=== PATIENT | female | born 1965 | race Caucasian/White ===

== ENCOUNTER 2016-09-11 07:50 | Emergency (ER) | payer OTHER ==
[~2016-09-11] VITALS: Ht 170.1 cm; Wt 81.6 kg
[~2016-09-11 07:50] MED LIST: AMOXICILLIN500 MG PO; ANAPROX DS550 MG PO; BACTRIM DS 8001 TA1 PO; CIPROFLOXACIN500 MG PO; CLINDAMYCIN HC300 MG PO; COMPAZINE10 MG PO; Fioricet 325 MG1 TAB PO; HYDROCODONE BIT1 T11 PO; IBU800 M1 PO; KEFLEX500 MG PO; MOTRIN800 MG PO; NAPROSYN500 MG PO; NKHM; NORCO 325 MG-51 TAB PO; PEN-V500 MG PO; PERCOCET 325 MG1 TA7 PO; PERIDEX 480 ML480 ML PO; TOBRADEX 0.1%-0.5 ML OPH; ULTRAM50 MG PO
[2016-09-11] MEDS ORDERED: NEURONTIN100 MG PO (07:56)
[2016-09-11 08:27] LABS: BASO % 0.4 % (0.0-1.0); EOS # 0.1 10*3/uL (0.0-0.4); EOS % 1.6 % (1.0-4.0); HEMATOCRIT 42.3 % (37.0-47.0); HEMOGLOBIN 14.5 g/dl (12.0-16.0); LYMPH # 2.4 10*3/uL (1.3-4.4); LYMPH % 42.8 % (27.0-41.0); MEAN CELL VOLUME 87.9 fl (81.0-99.0); MEAN CORPUSCULAR HGB 30.1 pg (27.0-31.0); MEAN CORPUSCULAR HGB CONC 34.3 g/dl (33.0-37.0); MEAN PLATELET VOLUME 10.4 fl (9.6-12.3); MONO # 0.3 10*3/uL (0.1-1.0); MONO % 5.6 % (3.0-9.0); NEUT # 2.7 10*3/uL (2.3-7.9); NEUT % 49.4 % (47.0-73.0); PLATELET COUNT AUTOMATED 191 10*3/uL (130-400); RED BLOOD COUNT 4.81 10*6/uL (4.10-5.10); RED CELL DISTRI WIDTH 12.4 % (0-14.5); WHITE BLOOD COUNT 5.5 10*3/uL (4.8-10.8)
[2016-09-11 08:49] LABS: BUN 10 mg/dl (7-24); CARBON DIOXIDE 25 mmol/L (21-32); CHLORIDE 109 mmol/L (98-107); EST GLOM FILT AFRICAN AMERICAN > 60 ml/min; GLUCOSE 94 mg/dL (65-99); POTASSIUM 4.1 mmol/L (3.5-5.1); SODIUM 143 mmol/L (136-145)
[2016-09-11 08:50] LABS: TROPONIN I < 0.015 ng/ml (<0.5)
[2016-09-11] MEDS ORDERED: Fioricet 325 MG1 TAB PO (10:21)
[2016-09-11] MEDS ORDERED: ZOFRAN ODT4 MG SL (10:21)
[2016-09-11 10:22] VITALS: BP 125/74
== END 2016-09-11 10:25 | disposition home or self-care (01) ==
LOC: ED 07:50
PROVIDERS: Emergency Medicine
DX: G43.909 Migraine, unspecified, not intractable, without status migrainosus (principal); R07.89 Other chest pain; F17.200 Nicotine dependence, unspecified, uncomplicated; Z79.899 Other long term (current) drug therapy

== ENCOUNTER 2016-12-17 08:45 | Inpatient (IN) | payer OTHER ==
[~2016-12-17] VITALS: Ht 170.1 cm; Wt 83.2 kg
--- NOTE | ~2016-12-17 | CON ---
[place], [place] REPORT OF CONSULTATION NAME: BEATRICE MCKEE UNIT #: [id number] ROOM: 412 DOCTOR: LUIS BOX MD BIRTHDATE: [birth year] DOS: 12/18/2016 HISTORY OF PRESENT ILLNESS: A 51-year-old female consultation for chest pain with a history of fibromyalgia, admitted with midsternal, nonradiating chest discomfort. The patient states that tightness and pressure is constant. The patient has no acute EKG changes suggestion of myocardial injury or infarction. She never had a stress test before. In the Emergency Room, she was given aspirin and nitrates. PAST MEDICAL HISTORY: Significant for fibromyalgia, migraine headache, neuropathy, dental pain. PAST SURGICAL HISTORY: Appendectomy, hysterectomy. SOCIAL HISTORY: She is a current tobacco user, 1-2 packs per day. Denies any alcohol abuse. FAMILY HISTORY: Positive for coronary artery disease. HOME MEDICATIONS: Gabapentin, ibuprofen, acetaminophen. REVIEW OF SYSTEMS: CONSTITUTIONAL: No fever, no chills. HEENT: No visual disturbances or hearing problems. CARDIOVASCULAR SYSTEM: As described in HPI. RESPIRATORY SYSTEM: No shortness of breath. ABDOMEN: No GI or issues. NEUROLOGICAL: No syncope. All other review of systems are negative. PHYSICAL EXAMINATION: VITAL SIGNS: Blood pressure is 110/70. She is in sinus rhythm. HEENT: Unremarkable. NECK: Supple, no JVD. LUNGS: Clear to auscultation and percussion. HEART: Heart sounds are regular. No murmur, no rub. ABDOMEN: Soft. NEUROLOGIC: Stable. LABORATORY DATA: Cardiac enzymes are all negative. Electrolytes are normal. Troponins are negative. Hemoglobin and hematocrit within normal limits. EKG sinus rhythm with nonspecific ST-T changes. IMPRESSION: The patient with tobacco abuse. Family history of coronary artery disease with chest pain. RECOMMENDATIONS: Continue with the present medications. Agree with the present care. We will set up for a stress test and we will follow the stress test and further management will depend upon the stress findings. [place], [place] REPORT OF CONSULTATION NAME: BEATRICE MCKEE UNIT #: [id number] ROOM: 412 DOCTOR: LUIS BOX MD BIRTHDATE: [birth year] LUIS BOX MD CM:CONSTR:REPORT OF CONSULTATION 0656 12/19/16 0200 interface
--- NOTE | ~2016-12-17 | ST ---
[place], [place] EXERCISE STRESS TEST REPORT [id number] UN[facility] #: [id number] ROOM: 412 DOCTOR: LUIS BOX MD BIRTHDATE: [birth year] DOS: 12/18/2016 Lexiscan portion of the Lexiscan Cardiolite. Baseline cardiogram, sinus rhythm with Lexiscan. No new EKG changes. No chest pain, dysrhythmia. Blood pressure and heart rate response was normal. FINAL IMPRESSION: No EKG changes with Lexiscan. No chest pain with Lexiscan. No dysrhythmia with Lexiscan. Blood pressure and heart rate response was normal. Nuclear images will be reported separately. LUIS BOX MD CM:STRESS:EXERCISE STRESS TEST REPORT [id number] 0052 LUIS BOX MD
[~2016-12-17 08:45] MED LIST changes: +NEURONTIN100 MG PO; +ZOFRAN ODT4 MG SL
[2016-12-17 08:52] VITALS: BP 143/90
[2016-12-17 09:14] LABS: BASO % 0.2 % (0.0-1.0); EOS # 0.1 10*3/uL (0.0-0.4); EOS % 1.2 % (1.0-4.0); HEMATOCRIT 46.8 % (37.0-47.0); HEMOGLOBIN 16.2 g/dl (12.0-16.0); LYMPH # 2.8 10*3/uL (1.3-4.4); LYMPH % 32.7 % (27.0-41.0); MEAN CELL VOLUME 85.7 fl (81.0-99.0); MEAN CORPUSCULAR HGB 29.7 pg (27.0-31.0); MEAN CORPUSCULAR HGB CONC 34.6 g/dl (33.0-37.0); MONO # 0.5 10*3/uL (0.1-1.0); NEUT # 5.1 10*3/uL (2.3-7.9); NEUT % 59.8 % (47.0-73.0); PLATELET COUNT AUTOMATED 214 10*3/uL (130-400); RED BLOOD COUNT 5.46 10*6/uL (4.10-5.10); RED CELL DISTRI WIDTH 12.3 % (0-14.5); WHITE BLOOD COUNT 8.6 10*3/uL (4.8-10.8)
[2016-12-17 09:23] LABS: INTERNATIONAL NORM RATIO 0.9 (2.0-3.5); PROTHROMBIN TIME 9.6 SECONDS (9.0-12.4)
[2016-12-17 09:30] LABS: ALBUMIN 3.4 gm/dl (3.1-4.5); ALKALINE PHOSPHATASE 107 U/L (45-117); BILIRUBIN, TOTAL 0.3 mg/dl (0.2-1.0); BUN 14 mg/dl (7-24); CARBON DIOXIDE 30 mmol/L (21-32); CHLORIDE 104 mmol/L (98-107); EST GLOM FILT AFRICAN AMERICAN > 60 ml/min; GLUCOSE 106 mg/dL (65-99); MAGNESIUM 2.2 mg/dL (1.5-2.1); POTASSIUM 4.1 mmol/L (3.5-5.1); SGOT/AST 9 IU/L (3-35); SGPT/ALT 15 U/L (12-78); SODIUM 137 mmol/L (136-145); TOTAL PROTEIN 7.6 gm/dL (6.4-8.2)
[2016-12-17 09:31] LABS: TROPONIN I < 0.015 ng/ml (<0.045)
[2016-12-17 09:48] VITALS: BP 151/94
[2016-12-17 10:09] VITALS: BP 127/79
[2016-12-17 12:00] VITALS: BP 111/72
[2016-12-17] MEDS ORDERED: IBUPROFEN600 MG PO (12:52)
[2016-12-17 16:00] VITALS: BP 102/59
[2016-12-17 20:00] VITALS: BP 114/52
[2016-12-17 22:37] LABS: CKMB < 0.5 ng/ml (0.5-3.6); CPK 26 U/L (26-192); TROPONIN I < 0.015 ng/ml (<0.045)
[2016-12-18] VITALS: BP 131/80
[2016-12-18 08:30] VITALS: BP 124/70
[2016-12-18 08:52] LABS: CKMB 1.3 ng/ml (0.5-3.6); CPK 24 U/L (26-192)
[2016-12-18 08:57] LABS: TROPONIN I < 0.015 ng/ml (<0.045)
[2016-12-18 10:00] VITALS: BP 112/68
[2016-12-18] MEDS ORDERED: INDOMETHACIN25 M1 PO (11:40)
== END 2016-12-18 12:14 | disposition home or self-care (01) | DRG 314 ==
LOC: ED 08:45 → 4E 10:38 → EDHOLD 10:38 → 4E 11:31
PROVIDERS: Emergency Medicine; Internal Medicine
DX: I30.1 Infective pericarditis (principal); E43 Unspecified severe protein-calorie malnutrition; E83.41 Hypermagnesemia; G43.909 Migraine, unspecified, not intractable, without status migrainosus; G62.9 Polyneuropathy, unspecified; M79.7 Fibromyalgia; Z72.0 Tobacco use; Z71.6 Tobacco abuse counseling; Z80.9 Family history of malignant neoplasm, unspecified; Z90.710 Acquired absence of both cervix and uterus; Z79.899 Other long term (current) drug therapy; Z82.49 Family history of ischemic heart disease and other diseases of the circulatory system; Z68.28 Body mass index [BMI] 28.0-28.9, adult

== ENCOUNTER → 2017-10-07 | Outpatient (CLI) | payer OTHER ==
[~2017-10-07] MED LIST changes: +IBUPROFEN600 MG PO; +INDOMETHACIN25 M1 PO
[2017-10-07 16:04] LABS: HEMATOCRIT 46.1 % (37.0-47.0); HEMOGLOBIN 15.7 g/dl (12.0-16.0); MEAN CELL VOLUME 90.2 fl (81.0-99.0); MEAN CORPUSCULAR HGB 30.7 pg (27.0-31.0); MEAN CORPUSCULAR HGB CONC 34.1 g/dl (33.0-37.0); MEAN PLATELET VOLUME 10.8 fl (9.6-12.3); RED BLOOD COUNT 5.11 10*6/uL (4.10-5.10); RED CELL DISTRI WIDTH 12.5 % (0-14.5); WHITE BLOOD COUNT 6.5 10*3/uL (4.8-10.8)
[2017-10-07 16:37] LABS: ALBUMIN 3.6 gm/dl (3.1-4.5); ALKALINE PHOSPHATASE 110 U/L (45-117); BUN 14 mg/dl (7-24); CHLORIDE 105 mmol/L (98-107); CHOLESTEROL 175 mg/dL (<200); CREATININE 1.06 mg/dL (0.55-1.02); HDL CHOLESTEROL 52 mg/dl (40-60); LDL CHOLESTEROL 107 mg/dL (9-159); POTASSIUM 4.4 mmol/L (3.5-5.1); SGOT/AST 13 IU/L (3-35); SGPT/ALT 17 U/L (12-78); SODIUM 140 mmol/L (136-145); TOTAL PROTEIN 7.9 gm/dL (6.4-8.2); TRIGLYCERIDES 80 mg/dl (<150); VLDL CHOLESTEROL 16 mg/dL (6-40)
== END | disposition home or self-care (01) ==
LOC: LAB 15:21
PROVIDERS: Family Medicine
DX: E78.00 Pure hypercholesterolemia, unspecified (principal); E55.9 Vitamin D deficiency, unspecified; Z79.01 Long term (current) use of anticoagulants

== ENCOUNTER 2017-10-17 02:47 | Inpatient (IN) | payer OTHER ==
[2017-10-17] VITALS (16 sets, daily range): BP systolic 105–152; BP diastolic 58–125
[~2017-10-17] VITALS: Ht 170.1 cm; Wt 92.7 kg
--- NOTE | ~2017-10-17 | CON ---
[place], [place] REPORT OF CONSULTATION [id number] UNIT #: [id number] ROOM: 502 DOCTOR: LUANN MACIAS MD BIRTHDATE: [birth year] DOS: 10/17/2017 HISTORY OF PRESENT ILLNESS: This is a 52-year-old -[place] woman with a history of morbid obesity, fibromyalgia, migraines, who has never had a heart attack, heart failure or diabetes. She has had appendectomy and hysterectomy in the past. She still uses tobacco/smokes. She has never had a heart attack, stroke, cancer, kidney problems or COPD. She lives at home and looks after her 72-year-old mother and also her grandchild and is reasonably active. She had been doing well. Quarter to three last night, she developed anterior chest heaviness and pain that went up into the neck and the ears. It was burning and she has tingling sensation in the ears. She did not have any back pain. There was no arm discomfort. She had no epigastric pain. There was no sweating, nausea or vomiting. It is 12 hours since onset of pain and it remains severe. She has not had any PND, orthopnea, or swelling of the lower extremities previously. FAMILY HISTORY: Negative for coronary artery disease. HOME MEDICATIONS: Include gabapentin 100 mg t.i.d., Fioricet 325/50 q.i.d., ibuprofen 600 q.6h. p.r.n., indomethacin 25 mg t.i.d. ALLERGIES: No known drug allergies. PHYSICAL EXAMINATION: GENERAL: This reveals a patient who is miserable. She seems to be in pain. She seems tired, oriented; however, her complexion is fine. She is not diaphoretic. There is no thyromegaly or finger clubbing. VITAL SIGNS: Pulse is 86 and regular, blood pressure 117/77 and 116/71. NECK: JVP is normal. AJR is negative. No bruit in the neck. HEART: There is no cardiomegaly, no murmurs are present. EXTREMITIES: She has good pedal pulses and no edema in the lower extremity. RESPIRATORY: She is not tachypneic. LUNGS: Clear to auscultation, maybe a few crackles in the left base. Anterior chest is very tender i.e. over the entire anterior chest, left upper abdominal area is also tender, but without guarding or rigidity. LABORATORY DATA: Two ECGs have shown normal sinus rhythm and a normal pattern. Troponin I levels are normal. She had a stress echocardiogram couple of years ago, which was unremarkable. An echocardiogram had shown normal LV systolic function and no valvular abnormalities. IMPRESSION: This patient has acute chest pain that has been there for 12 hours without letting up. ECG are normal. Troponin I levels are also normal. Chest is very tender. This pain is most likely from chest wall, probably muscular. She does not require any cardiac workup. [place], [place] REPORT OF CONSULTATION NAME: BEATRICE MCKEE UNIT #: [id number] ROOM: 502 DOCTOR: LUANN MACIAS MD BIRTHDATE: [birth year] I thank you on behalf of Dr. Darnell for this consult. CC: Dr. Darnell. LUANN MACIAS MD CM:CONSTR:REPORT OF CONSULTATION 1500 10/17/17 2048 interface
--- NOTE | ~2017-10-17 | WRIGHTHP ---
[place], [place] PATIENT HISTORY AND PHYSICAL EXAM NAME: BEATRICE MCKEE [facility] #: [id number] UNIT #: [id number] ROOM: 502 DOCTOR: KATHLEEN NORTON MD BIRTHDATE: [birth year] DOS: 10/17/2017 HISTORY OF PRESENT ILLNESS: This patient is 52 years old. The patient is not known to me. The patient states that she started the cough yesterday, developed some chest pains earlier this morning about 3 hours before being brought to the Emergency Room. When she arrived at the Emergency Room, she was tending to hyperventilate. Pain is mostly in the mid chest with radiation into the neck. She denies having any fever, any chills, but she does have a very moist productive cough and the only complaint that she has this morning is that she wants something for pain. PAST MEDICAL HISTORY: Significant for: 1. Fibromyalgia. 2. History of hospitalization exactly a year ago with chest pain with a stress test which was negative. MEDICATIONS: She is on are gabapentin and ibuprofen. SOCIAL HISTORY: Smokes 1 pack of cigarettes every 3 days. Denies using any alcohol. Lives at home with her mom. Her children are grown. She is not employed. She takes care of her mom. PHYSICAL EXAMINATION: GENERAL: She is awake and alert and oriented, but easily falls into sleep. On further questioning, she was given Ativan in the ER for hyperventilation. VITAL SIGNS: Graphic trend shows a pressure of 128/78, pulse of 81, respirations 22, temperature 97.3. LUNGS: Diminished breath sounds. HEART: Regular. ABDOMEN: Obese, soft. EXTREMITIES: Without any edema. ASSESSMENT AND PLAN: 1. The patient with complaints of precordial pain with radiation of the pain to the neck, was a smoker with a negative stress test a year ago. I have asked Cardiology to evaluate her. She does have classic symptoms of angina. Troponins will be checked every 3 hours x 3 and may require a cardiac catheterization because of continued complaints of pain and rather than another stress test. Awaiting the Cardiology opinion. 2. Abnormal chest x-ray. The patient presents with hypoventilation with an abnormal chest x-ray, which shows atelectasis versus pneumonia. She does have a moist sounding cough. We will cover her with antibiotics and order a CT of the chest to further delineate this problem. 3. Chronic pain from neuropathy and fibromyalgia. We will start her on Toradol for pain control. [place], [place] PATIENT HISTORY AND PHYSICAL EXAM NAME: BEATRICE MCKEE UNIT #: [id number] ROOM: [facility] DOCTOR: KATHLEEN NORTON MD BIRTHDATE: [birth year] KATHLEEN NORTON MD CM:HISPHYS:PATIENT HISTORY AND PHYSICAL EXAMINATION 0735 0801 KATHLEEN NORTON MD 10/17/17 0759 interface
--- NOTE | ~2017-10-17 | PR ---
[place], [place] PROGRESS NOTE NAME: BEATRICE MCKEE [facility] #: [id number] UNIT #: [id number] ROOM: 502 DOCTOR: LUIS BOX MD BIRTHDATE: [birth year] DOS: 10/19/2017 SUBJECTIVE: The patient was seen by Dr. Cuba, who was covering me. The patient has ruled out for myocardial infarction. Apparently, Dr. Cuba determined that the patient has more of chest wall pain. Cardiac enzymes have all been negative. Hemodynamically, she is much more stable. OBJECTIVE: VITAL SIGNS: Blood pressure and heart rate are within normal limits. NECK: Supple. No JVD. LUNGS: Clear. HEART: Sounds are regular. NEUROLOGIC: Stable. LABORATORY DATA: Lab work shows hemoglobin of 14.4 and hematocrit 41.7. Electrolytes are within normal limits. Creatinine is normal. Albumin is 2.9, which needs to be supplemented. The patient was seen by Dr. Cuba as a consultation on the 10/17/2017. IMPRESSION: The patient with a history of fibromyalgia, morbid obesity, and migraine headache. Echocardiogram has shown a normal ejection fraction. Stress echo a couple of years ago was also normal. The patient with probable noncardiac pain. PLAN: Continue with the present medications as ordered. Monitor the blood pressure and heart rate very closely. If continued to have pain, we have no other choice other than repeating a stress test. LUIS BOX MD CM:PNTRANS 0717 0735 LUIS BOX MD 10/19/17 0733 interface
--- NOTE | ~2017-10-17 | PR ---
[place], [place] PROGRESS NOTE NAME: BEATRICE MCKEE [facility] #: [id number] UNIT #: [id number] ROOM: 502 DOCTOR: LUANN MACIAS MD BIRTHDATE: [birth year] DOS: 10/18/2017 She was in a terrible pain yesterday. Today, pain is much improved. Her mood is good too. She is smiling. She does not in distress like yesterday. She ate well and did walk in the room. She normally walks quite a bit, but today, she said she was short of breath as she walked to washroom. OBJECTIVE: GENERAL: Her mood appears cheerful. She is a pleasant. VITAL SIGNS: Temperature is normal, pulse is 86 and regular, blood pressure 139/78. NECK: Normal JVP. CARDIOVASCULAR: Auscultation with no murmurs or rubs. LUNGS: Clear. EXTREMITIES: No edema in lower extremities. MUSCULOSKELETAL: Anterior chest wall tenderness is very mild now. ABDOMEN: There is no abdominal pain. She had some tenderness over the left lower part of the abdomen, which she is not present now. IMPRESSION: This patient has chest wall pain that is noncardiac and no further cardiac workup is warranted. I saw this patient on behalf of Dr. Banuelos. LUNAN MACIAS MD CM:PNTRANS [id number] LUANN MACIAS MD 10/18/172132 interface
--- NOTE | ~2017-10-17 | PF ---
[place], [place] PULMONARY FUNCTION TEST NAME: [facility]RICE MCKEE [id number] UNIT #: [id number] ROOM: 502 DOCTOR: RAYNA KUHN MD,SUSAN BIRTHDATE: [birth year] DOS: 10/19/2017 The test was done for the patient on 10/19/2017. The test was ordered by the Hospitalist services. HISTORY: The patient recorded as 52-year-old female, height of 67 inches, weight of 204 pounds with a BMI of 32. The patient was noted past tobacco use. The patient quarter pack of cigarettes per daily use. She has been smoking for 30 years. The patient was noted with symptoms of shortness of breath and chest pain. SPIROMETRY: The FVC was recorded 3.19 liters as 82% predicted value normal noted. FEV1 was noted at 1.56 liters, 83% predicted value normal as well. The ratio of FEV1/FVC was noted normal. Postbronchodilator no changes were noted of significance. Flow volume loop was suggestive of mild obstructive airway pattern. The lung diffusion noted 72%, which was mildly decreased without correction of carbon monoxide hemoglobin values. LUNG VOLUME: The patient could not perform the lung volume with an inability to follow the instruction with the plethysmography. FINAL IMPRESSION: The patient with mild obstructive lung disease was suspected. With a spirometry for the patient, otherwise normal test results. SUSAN WAY MD CM:PFREPORT:PULMONARY FUNCTION TEST 1128 1807 SUSAN KUHN MD
--- NOTE | ~2017-10-17 | PR ---
[place], [place] PROGRESS NOTE NAME: BEATRICE MCKEE [facility] #: [id number] UNIT #: [id number] ROOM: 502 DOCTOR: RAYNA KUHN MD,SUSAN BIRTHDATE: [birth year] DOS: 10/21/2017 SUBJECTIVE: She has been noted comfortable at this time with reduction in symptoms of shortness of breath. Denies any symptoms of chest pain. The patient does have wheezing and intermittent mild productive cough. Denies symptoms of hemoptysis. OBJECTIVE: VITAL SIGNS: For the patient which has been recorded showed the temperature noted normal, respiratory rate 20, heart rate 68, blood pressure 148/77. The pulse oxygen saturation of the patient noted on room air 97% saturation. HEENT: Examination shows head was atraumatic. Eyes nonicterus. NECK: Supple. CARDIOVASCULAR: S1, S2 audible. LUNGS: The patient was noted without any wheezing or crackles at the present time. Breaths are noted mildly decreased bilaterally. ABDOMEN: Soft, nontender. EXTREMITIES: Without any acute edema. LABORATORY DATA: CBC was noted as normal. CMP was noted as normal. IMPRESSION: The patient with resolving acute exacerbation of bronchial asthma. The patient with shortness of breath and cough with current medical management. PLAN OF TREATMENT: The patient will be discharged home to be followed up in the office settings. The patient would receive the tapering prednisone and oral antibiotic as well as the bronchodilators. Abstinence of the tobacco use was recommended completely to the patient in the future as well. SUSAN WAY MD CM:PNTRANS 1308 1602 SUSAN KUHN MD 10/21/17 1601 interface
--- NOTE | ~2017-10-17 | CON ---
[place], [place] REPORT OF CONSULTATION NAME: BEATRICE MCKEE [facility] #: [id number] UNIT #: [id number] ROOM: 502 DOCTOR: SUSAN JARRETT MD BIRTHDATE: [birth year] DOS: 10/20/2017 PULMONARY CONSULTATION, EVALUATION AND MANAGEMENT CONSULTATION REQUESTED BY: Hospitalist service. REASON FOR CONSULTATION: For assessment symptoms of shortness of breath. HISTORY OF PRESENT ILLNESS: This is a 52-year-old white female patient without any known past pulmonary problem. The patient admitted to the hospital on the 10/17/2017. The patient presented to the hospital and was noted with symptoms of shortness of breath that has been occurring for this patient and described to be with the talking and walking. The patient does show improvement in the shortness of breath at rest and sleeping. She does have symptoms of cough, which has been noted nonproductive. Denies symptoms of chest pain or hemoptysis. The patient reported with symptoms of wheezing at times as well. REVIEW OF SYSTEMS: CONSTITUTIONAL: Fatigue and tiredness reported. No symptoms of fever or chills. EYES: Denies any burning, redness, or tenderness. EAR, NOSE, AND THROAT: Denies sore throat, otalgia, postnasal drainage or epistaxis. CARDIOVASCULAR: Denies angina pain, edema, pain of the lower extremities or palpitation. GASTROINTESTINAL: No dysphagia, nausea, vomiting, diarrhea, abdominal pain, hematemesis, melena, hematochezia, or abnormal weight loss. GENITOURINARY: No dysuria, suprapubic pain, hematuria. MUSCULOSKELETAL: Denies any acute joint pain, redness, or tenderness. SKIN: Denies any abnormal lesions or rashes. CENTRAL NERVOUS SYSTEM: No dizziness, headache, diplopia, syncopal episodes. Remaining systems were reviewed with the patient, they were noted all negative. PAST MEDICAL HISTORY: The patient was known with history of: 1. Nicotine dependence. 2. Fibromyalgia. SOCIAL HISTORY: The patient is . She has 3 children. Lives at home. Smokes about a quarter-pack of cigarettes per day approximately. Denies any history of illicit drug use or any alcohol use. FAMILY HISTORY: Noted as noncontributory. HOME MEDICATIONS: Noted use of ibuprofen and gabapentin. DRUG ALLERGIES: Noted as no known drug allergies. PHYSICAL EXAMINATION: GENERAL: A 52-year-old female patient who has been noted currently awake and [place], [place] REPORT OF CONSULTATION NAME: BEATRICE MCKEE [facility] #: [id number] UNIT #: [id number] ROOM: [facility] DOCTOR: SUSAN JARRETT MD BIRTHDATE: [birth year] alert without any distress, resting in the bed, noted short of breath intermittently during the assessment. Height 5 feet 7 inches, weight of 204 pounds, BMI 32. VITAL SIGNS: For the patient shows a normal temperature, respiratory rate 16-20, heart rate of 93-71, blood pressure 126/73-139/77. Pulse oxygen saturation noted on room air 97% saturation. HEENT: Moderate obesity. Head was atraumatic. Eyes nonicterus. Oral mucosa moist. CARDIOVASCULAR: S1, S2 is audible. LUNGS:. Noted without any wheeze or crackles at the present time. Breaths are noted mildly decreased bilaterally. ABDOMEN: Soft with lghn-oc-hharzqpc obesity. Bowel sounds present without tenderness. EXTREMITIES: Without any edema, clubbing, cyanosis. CENTRAL NERVOUS SYSTEM: Noted as nonfocal. MUSCULOSKELETAL: No acute deformities. LABORATORY DATA: CBC on 10/17/2017 for the patient noted normal CBC. The PT, PTT on 10/17/2017 normal. The CMP on 10/17/2017 for the patient's glucose 146, CO2 was 20. Remaining CBC were normal. The troponin for the patient was noted as normal. Influenza A and B, nasal washing antigens were negative. The CBC on 10/18/2017 for the patient noted as normal. The PT, PTT, repeated again 10/18/2017 were normal. CMP of the patient that was done on 10/18/2017 was noted as glucose 187, BUN and creatinine was normal. Ultrasound of the gallbladder screen for the patient was done on 10/18/2017 was noted partially contracted gallbladder, limited assessment. No intrabiliary dilatation noted. HIDA scan was also done for the patient with ____ was noted with incomplete examination. CBC of the patient this morning remains normal. The CMP of the patient this morning remains normal BUN and creatinine. The CO2 was noted 21 as normal. ESR today was noted as 36. Echocardiogram of the patient that was done, which was assessed by Dr. Cuba with findings. The patient reported as normal normal right ventricle function. The patient was reported with left ventricle ejection fraction of 70% without any valvular abnormalities. The chest x-ray that was done for this patient on admission were noted without any acute abnormalities. CT of the chest for the patient was noted without any evidence of pulmonary embolism. The CTA of the chest of the patient personally reviewed by me as well. There was no evidence of pulmonary embolism. A small area of atelectasis of the patient noted essentially in the right lower lobe and minimal in the left lower lobe. There was no finding of other abnormalities. IMPRESSION: The patient who has been currently admitted to the hospital was noted with severe shortness of breath, which is very unusual as the patient reported at rest as well with the talking with relative clear lung exam. History of chronic obesity as well. The pulmonary function testing done for the patient today does not show any significant obstructive lung disease, mild obstructive lung disease was considered, but not significant abnormal enough to explain her shortness of breath. The patient has psychogenic shortness of breath at this time cannot be excluded central process as well. PLAN OF MANAGEMENT: The patient already receiving Solu-Medrol that will be [place], [place] REPORT OF CONSULTATION NAME: BEATRICE MCKEE UNIT #: [id number] ROOM: 502 DOCTOR: SUSAN JARRETT MD BIRTHDATE: [birth year] continued without any changes. The arterial blood gas will be ordered to assess the patient's respiratory status including for respiratory alkalosis and other abnormalities. At this time, no change in the major treatment will be done. If necessary, bronchoscopy certainly could be done for the patient clear secretions for endobronchial tree. There may be resulting in the current symptoms of shortness of breath and the symptoms started with a peer like acute infection at the beginning. Certainly, myopathy for the patient could be considered, but less likely to occur that quickly. In the meantime, other supportive therapy, plan and management to be continued as well. Usual care. Supportive plan of management and treatments. SUSAN WAY MD CM:CONSTR:REPORT OF CONSULTATION 1416 10/21/17 0053 interface
[2017-10-17 03:12] LABS: BASO % 0.4 % (0.0-1.0); EOS # 0.1 10*3/uL (0.0-0.4); EOS % 1.3 % (1.0-4.0); HEMATOCRIT 42.6 % (37.0-47.0); HEMOGLOBIN 14.8 g/dl (12.0-16.0); LYMPH # 2.8 10*3/uL (1.3-4.4); LYMPH % 35.2 % (27.0-41.0); MEAN CELL VOLUME 87.5 fl (81.0-99.0); MEAN CORPUSCULAR HGB 30.4 pg (27.0-31.0); MEAN CORPUSCULAR HGB CONC 34.7 g/dl (33.0-37.0); MEAN PLATELET VOLUME 11.5 fl (9.6-12.3); MONO # 0.4 10*3/uL (0.1-1.0); MONO % 5.6 % (3.0-9.0); NEUT # 4.5 10*3/uL (2.3-7.9); NEUT % 57.4 % (47.0-73.0); PLATELET COUNT AUTOMATED 202 10*3/uL (130-400); RED BLOOD COUNT 4.87 10*6/uL (4.10-5.10); WHITE BLOOD COUNT 7.9 10*3/uL (4.8-10.8)
[2017-10-17] MEDS ORDERED: NEURONTIN300 MG PO (03:31)
[2017-10-17] MEDS ORDERED: IBU800 M1 PO (03:32)
[2017-10-17 03:41] LABS: ACT PARTIAL THROMBO TIME 23.4 SECONDS (20.8-31.5); INTERNATIONAL NORM RATIO 0.9 (2.0-3.5)
[2017-10-17 03:46] LABS: ALBUMIN 3.1 gm/dl (3.1-4.5); ALKALINE PHOSPHATASE 100 U/L (45-117); BUN 15 mg/dl (7-24); CHLORIDE 112 mmol/L (98-107); CREATININE 0.85 mg/dL (0.55-1.02); POTASSIUM 3.9 mmol/L (3.5-5.1); SGOT/AST 18 IU/L (3-35); SODIUM 142 mmol/L (136-145); TOTAL PROTEIN 6.5 gm/dL (6.4-8.2)
[2017-10-17 03:49] LABS: SGPT/ALT 20 U/L (12-78)
[2017-10-17 04:01] LABS: TROPONIN I < 0.015 ng/ml (<0.045)
[2017-10-18] VITALS: BP 119/57
[2017-10-18 06:25] LABS: BASO % 0.2 % (0.0-1.0); HEMATOCRIT 41.7 % (37.0-47.0); HEMOGLOBIN 14.4 g/dl (12.0-16.0); LYMPH # 0.7 10*3/uL (1.3-4.4); LYMPH % 10.9 % (27.0-41.0); MEAN CELL VOLUME 88.9 fl (81.0-99.0); MEAN CORPUSCULAR HGB 30.7 pg (27.0-31.0); MEAN CORPUSCULAR HGB CONC 34.5 g/dl (33.0-37.0); MEAN PLATELET VOLUME 11.3 fl (9.6-12.3); MONO # 0.1 10*3/uL (0.1-1.0); MONO % 1.5 % (3.0-9.0); NEUT # 5.7 10*3/uL (2.3-7.9); NEUT % 87.2 % (47.0-73.0); PLATELET COUNT AUTOMATED 156 10*3/uL (130-400); RED BLOOD COUNT 4.69 10*6/uL (4.10-5.10); RED CELL DISTRI WIDTH 12.3 % (0-14.5); WHITE BLOOD COUNT 6.5 10*3/uL (4.8-10.8)
[2017-10-18 06:54] LABS: ACT PARTIAL THROMBO TIME 24.7 SECONDS (20.8-31.5); INTERNATIONAL NORM RATIO 0.9 (2.0-3.5)
[2017-10-18 06:57] LABS: ALBUMIN 2.9 gm/dl (3.1-4.5); ALKALINE PHOSPHATASE 100 U/L (45-117); BUN 14 mg/dl (7-24); CHLORIDE 106 mmol/L (98-107); CHOLESTEROL 133 mg/dL (<200); CREATININE 0.88 mg/dL (0.55-1.02); FREE T4 1.12 ng/dl (0.76-1.46); HDL CHOLESTEROL 53 mg/dl (40-60); LDL CHOLESTEROL 63 mg/dL (9-159); LIPASE 64 U/L (73-393); PHOSPHOROUS 2.8 mg/dL (2.5-4.9); POTASSIUM 3.9 mmol/L (3.5-5.1); SGOT/AST 10 IU/L (3-35); SGPT/ALT 19 U/L (12-78); SODIUM 138 mmol/L (136-145); TOTAL PROTEIN 7.2 gm/dL (6.4-8.2); TRIGLYCERIDES 85 mg/dl (<150); VLDL CHOLESTEROL 17 mg/dL (6-40)
[2017-10-18 07:02] LABS: THYROID STIM HORMONE (HS) 0.358 uIU/ml (0.358-4.75)
[2017-10-18 07:34] LABS: VITAMIN D, 25-HYDROXY 12.9 ng/mL (30-100)
[2017-10-18 08:00] VITALS: BP 107/66
[2017-10-18 12:00] VITALS: BP 114/77
[2017-10-18 16:00] VITALS: BP 139/78
[2017-10-18 20:00] VITALS: BP 132/61
[2017-10-19] VITALS: BP 123/65
[2017-10-19 08:00] VITALS: BP 119/77
[2017-10-19 12:00] VITALS: BP 118/62
[2017-10-19 16:00] VITALS: BP 118/62
[2017-10-19 20:12] VITALS: BP 134/77
[2017-10-20] VITALS: BP 139/72
[2017-10-20 06:03] LABS: BASO % 0.1 % (0.0-1.0); HEMATOCRIT 39.6 % (37.0-47.0); HEMOGLOBIN 13.1 g/dl (12.0-16.0); LYMPH # 1.3 10*3/uL (1.3-4.4); LYMPH % 16.2 % (27.0-41.0); MEAN CELL VOLUME 89.6 fl (81.0-99.0); MEAN CORPUSCULAR HGB 29.6 pg (27.0-31.0); MEAN CORPUSCULAR HGB CONC 33.1 g/dl (33.0-37.0); MEAN PLATELET VOLUME 11.7 fl (9.6-12.3); MONO # 0.3 10*3/uL (0.1-1.0); MONO % 3.3 % (3.0-9.0); NEUT # 6.5 10*3/uL (2.3-7.9); NEUT % 79.8 % (47.0-73.0); PLATELET COUNT AUTOMATED 151 10*3/uL (130-400); RED BLOOD COUNT 4.42 10*6/uL (4.10-5.10); RED CELL DISTRI WIDTH 12.7 % (0-14.5); WHITE BLOOD COUNT 8.2 10*3/uL (4.8-10.8)
[2017-10-20 06:10] LABS: ALBUMIN 2.7 gm/dl (3.1-4.5); ALKALINE PHOSPHATASE 87 U/L (45-117); BUN 21 mg/dl (7-24); CHLORIDE 109 mmol/L (98-107); CREATININE 0.76 mg/dL (0.55-1.02); POTASSIUM 4.2 mmol/L (3.5-5.1); SGOT/AST 16 IU/L (3-35); SGPT/ALT 24 U/L (12-78); SODIUM 140 mmol/L (136-145); TOTAL PROTEIN 6.7 gm/dL (6.4-8.2)
[2017-10-20 08:00] VITALS: BP 131/76
[2017-10-20 12:00] VITALS: BP 126/73
[2017-10-20 16:00] VITALS: BP 127/63
[2017-10-20 16:21] LABS: ABG HCO3 17.4 mmol/l (22-26); ABG O2 SATURATION 97.5 % (95-97); ARTERIAL BLOOD GAS PCO2 28.6 mmHg (35-45); ARTERIAL BLOOD GAS PH 7.398 (7.35-7.45)
[2017-10-20 16:22] LABS: ABG BASE EXCESS -5.9 mmol/L (-2.0-2.0)
[2017-10-20 20:00] VITALS: BP 138/68
[2017-10-21 00:22] VITALS: BP 127/71
[2017-10-21 07:26] LABS: BASO % 0.3 % (0.0-1.0); HEMATOCRIT 42.3 % (37.0-47.0); HEMOGLOBIN 14.2 g/dl (12.0-16.0); LYMPH # 1.4 10*3/uL (1.3-4.4); LYMPH % 18.3 % (27.0-41.0); MEAN CELL VOLUME 90.4 fl (81.0-99.0); MEAN CORPUSCULAR HGB 30.3 pg (27.0-31.0); MEAN CORPUSCULAR HGB CONC 33.6 g/dl (33.0-37.0); MEAN PLATELET VOLUME 11.6 fl (9.6-12.3); MONO # 0.3 10*3/uL (0.1-1.0); MONO % 3.9 % (3.0-9.0); NEUT % 76.2 % (47.0-73.0); PLATELET COUNT AUTOMATED 164 10*3/uL (130-400); RED BLOOD COUNT 4.68 10*6/uL (4.10-5.10); RED CELL DISTRI WIDTH 12.8 % (0-14.5); WHITE BLOOD COUNT 7.9 10*3/uL (4.8-10.8)
[2017-10-21 07:37] LABS: ALBUMIN 2.8 gm/dl (3.1-4.5); BUN 22 mg/dl (7-24); CHLORIDE 108 mmol/L (98-107); POTASSIUM 4.2 mmol/L (3.5-5.1); SGOT/AST 37 IU/L (3-35); SGPT/ALT 98 U/L (12-78); SODIUM 140 mmol/L (136-145); TOTAL PROTEIN 6.9 gm/dL (6.4-8.2)
[2017-10-21 07:40] LABS: ALKALINE PHOSPHATASE 97 U/L (45-117); CREATININE 0.85 mg/dL (0.55-1.02)
[2017-10-21 08:00] VITALS: BP 148/77
[2017-10-21] MEDS ORDERED: PREDNISONE10 MG PO (10:09)
[2017-10-21] MEDS ORDERED: VITAMIN D-32000 UNIT PO (10:09)
== END 2017-10-21 10:50 | disposition home or self-care (01) | DRG 206 ==
LOC: ED 02:47 → EDHOLD 04:52 → 5E 04:52
PROVIDERS: Emergency Medicine; Internal Medicine; Internal Medicine Critical Care Medicine
DX: M94.0 Chondrocostal junction syndrome [Tietze] (principal); E87.8 Other disorders of electrolyte and fluid balance, not elsewhere classified; E44.0 Moderate protein-calorie malnutrition; K76.0 Fatty (change of) liver, not elsewhere classified; E83.41 Hypermagnesemia; E66.01 Morbid (severe) obesity due to excess calories; J45.901 Unspecified asthma with (acute) exacerbation; G62.9 Polyneuropathy, unspecified; M79.7 Fibromyalgia; G43.909 Migraine, unspecified, not intractable, without status migrainosus; F17.210 Nicotine dependence, cigarettes, uncomplicated; G89.29 Other chronic pain; R73.9 Hyperglycemia, unspecified; E53.8 Deficiency of other specified B group vitamins; Z68.32 Body mass index [BMI] 32.0-32.9, adult; Z79.899 Other long term (current) drug therapy; Z90.49 Acquired absence of other specified parts of digestive tract; Z90.710 Acquired absence of both cervix and uterus; Z80.9 Family history of malignant neoplasm, unspecified

== ENCOUNTER 2019-05-19 07:54 | Inpatient (IN) | payer OTHER ==
[2019-05-19] VITALS (7 sets, daily range): BP systolic 101–134; BP diastolic 51–82
[~2019-05-19] VITALS: Ht 170.1 cm; Wt 90.4 kg
[~2019-05-19 07:54] MED LIST changes: +NEURONTIN300 MG PO; +PREDNISONE10 MG PO; +VITAMIN D-32000 UNIT PO
[2019-05-19 08:35] LABS: BASO % 0.2 % (0.0-1.0); EOS # 0.1 10*3/uL (0.0-0.4); EOS % 0.9 % (1.0-4.0); HEMATOCRIT 45.1 % (37.0-47.0); HEMOGLOBIN 15.6 g/dl (12.0-16.0); LYMPH # 2.5 10*3/uL (1.3-4.4); MEAN CELL VOLUME 89.5 fl (81.0-99.0); MEAN CORPUSCULAR HGB CONC 34.6 g/dl (33.0-37.0); MEAN PLATELET VOLUME 11.3 fl (9.6-12.3); MONO # 0.6 10*3/uL (0.1-1.0); MONO % 6.4 % (3.0-9.0); NEUT # 5.8 10*3/uL (2.3-7.9); NEUT % 64.3 % (47.0-73.0); PLATELET COUNT AUTOMATED 171 10*3/uL (130-400); RED BLOOD COUNT 5.04 10*6/uL (4.10-5.10); RED CELL DISTRI WIDTH 13.3 % (0-14.5); WHITE BLOOD COUNT 9.1 10*3/uL (4.8-10.8)
[2019-05-19 08:46] LABS: INTERNATIONAL NORM RATIO 0.9 (2.0-3.5)
[2019-05-19 08:54] LABS: ALBUMIN 3.8 gm/dl (3.1-4.5); ALKALINE PHOSPHATASE 103 U/L (45-117); BUN 21 mg/dl (7-24); CHLORIDE 106 mmol/L (98-107); CREATININE 0.99 mg/dL (0.55-1.02); POTASSIUM 3.3 mmol/L (3.5-5.1); SGOT/AST 12 IU/L (3-35); SGPT/ALT 15 U/L (12-78); SODIUM 135 mmol/L (136-145); TOTAL PROTEIN 7.6 gm/dL (6.4-8.2)
[2019-05-19 08:57] LABS: TROPONIN I < 0.015 ng/ml (<0.045)
--- NOTE | 2019-05-19 10:30 | NUR ---
A 53, admitted to 5E, under the services of KYLE Davis DO with a diagnosis of CHEST PAIN/PNEUMONITIS. Chief complaint is CHEST PAIN. Patient arrived via stretcher from ER. Monitor applied. Initial assessment completed. Vital signs taken and recorded. KYLE DAVIS DO notified of admission to the unit. Orders received. See assessment for past medical history, medications and allergies. Patient and/or family oriented to unit. [address] visitation policy reviewed. Clothing/patient valuable form completed. LUANNE RAMIREZ
--- NOTE | 2019-05-19 11:33 | NUR ---
PT STATES [facility] IS HER [facility]. CALLED [facility] TO VERIFY HOME MEDS, NO MEDS FILLED SINCE 2018. ASKED PT AGAIN ABOUT HER PHARMACY SHE STATES SHE FILLS THEM SOMEWHERE IN [facility], SHE WILL CALL HER MOM AND ASK. Jordyn HUANG NP NOTIFIED.
--- NOTE | 2019-05-19 17:30 | NUR ---
PT REQUESTED AND WAS MEDICATED WITH FLEXERIL FOR C/O MUSCLE SPASM. CALL LIGHT IN REACH. WILL MONITOR
--- NOTE | 2019-05-19 20:30 | NUR ---
TORADOL GIVEN FOR CHEST PAIN, THAT PATIENT RATES 10/10. WILL MONITOR AND REASSESS.
--- NOTE | 2019-05-19 22:00 | NUR ---
TORADOL EFFECTIVE FOR PAIN.
--- NOTE | 2019-05-19 23:57 | NUR ---
24 HR chart check completed.
[2019-05-20] VITALS: BP 104/55
--- NOTE | 2019-05-20 05:06 | NUR ---
WHEN I AWOKE PATIENT FOR MORNING MEDS, SHE STATED SHE WAS HAVING CHEST PAIN. AND THAT THE TORADOL WAS HELPING HER WITH THE PAIN. TORADOL GIVEN. WILL MONITOR AND REASSESS.
[2019-05-20 06:47] LABS: BASO % 0.1 % (0.0-1.0); EOS % 0.1 % (1.0-4.0); HEMATOCRIT 43.6 % (37.0-47.0); HEMOGLOBIN 14.6 g/dl (12.0-16.0); LYMPH # 1.6 10*3/uL (1.3-4.4); LYMPH % 14.3 % (27.0-41.0); MEAN CELL VOLUME 89.7 fl (81.0-99.0); MEAN CORPUSCULAR HGB CONC 33.5 g/dl (33.0-37.0); MEAN PLATELET VOLUME 11.8 fl (9.6-12.3); MONO # 0.6 10*3/uL (0.1-1.0); MONO % 5.5 % (3.0-9.0); NEUT # 8.6 10*3/uL (2.3-7.9); NEUT % 79.9 % (47.0-73.0); PLATELET COUNT AUTOMATED 165 10*3/uL (130-400); RED BLOOD COUNT 4.86 10*6/uL (4.10-5.10); RED CELL DISTRI WIDTH 12.9 % (0-14.5); WHITE BLOOD COUNT 10.8 10*3/uL (4.8-10.8)
[2019-05-20 06:59] LABS: ALBUMIN 3.3 gm/dl (3.1-4.5); BUN 22 mg/dl (7-24); CHLORIDE 107 mmol/L (98-107); POTASSIUM 4.2 mmol/L (3.5-5.1); SODIUM 137 mmol/L (136-145)
[2019-05-20 07:10] LABS: ALKALINE PHOSPHATASE 103 U/L (45-117); CHOLESTEROL 173 mg/dL (<200); CREATININE 1.03 mg/dL (0.55-1.02); FREE T4 1.11 ng/dl (0.76-1.46); HDL CHOLESTEROL 53 mg/dl (40-60); LDL CHOLESTEROL 91 mg/dL (9-159); PHOSPHOROUS 3.1 mg/dL (2.5-4.9); SGOT/AST 5 IU/L (3-35); SGPT/ALT 17 U/L (12-78); THYROID STIM HORMONE (HS) 0.406 uIU/ml (0.358-4.75); TOTAL PROTEIN 7.2 gm/dL (6.4-8.2); TRIGLYCERIDES 145 mg/dl (<150); VLDL CHOLESTEROL 29 mg/dL (6-40)
--- NOTE | 2019-05-20 07:36 | NUR ---
PT. REFUSED AEROSOL TREATMENT AT THIS TIME.
[2019-05-20 07:44] LABS: VITAMIN D, 25-HYDROXY 21.4 ng/mL (30-100)
[2019-05-20 08:00] VITALS: BP 102/60; BP 119/68
--- NOTE | 2019-05-20 09:18 | NUR ---
PT MEDICATED WITH TYLENOL FOR COMPLAINTS OF PAIN IN CHEST WITH DEEP INSPIRATIONS 01/23. WILL MONITOR.
--- NOTE | 2019-05-20 10:30 | NUR ---
PAIN IS MORE TOLERABLE PER PATIENT.
[2019-05-20 12:00] VITALS: BP 113/58
--- NOTE | 2019-05-20 12:51 | NUR ---
Medicated with iv toradol as ordered per pt request for c/o pain to mid-chest rated 9/10 made worse w/ exertion.
[2019-05-20 16:00] VITALS: BP 104/55
[2019-05-20 20:00] VITALS: BP 119/51
[2019-05-21] VITALS: BP 133/67
[2019-05-21 07:18] LABS: BASO % 0.1 % (0.0-1.0); EOS % 0.1 % (1.0-4.0); HEMATOCRIT 42.1 % (37.0-47.0); HEMOGLOBIN 13.9 g/dl (12.0-16.0); LYMPH # 1.9 10*3/uL (1.3-4.4); LYMPH % 19.7 % (27.0-41.0); MEAN CELL VOLUME 91.5 fl (81.0-99.0); MEAN CORPUSCULAR HGB 30.2 pg (27.0-31.0); MEAN PLATELET VOLUME 12.1 fl (9.6-12.3); MONO # 0.6 10*3/uL (0.1-1.0); MONO % 6.7 % (3.0-9.0); NEUT % 73.2 % (47.0-73.0); PLATELET COUNT AUTOMATED 147 10*3/uL (130-400); RED CELL DISTRI WIDTH 13.4 % (0-14.5); WHITE BLOOD COUNT 9.5 10*3/uL (4.8-10.8)
[2019-05-21 07:30] LABS: ALBUMIN 2.8 gm/dl (3.1-4.5); ALKALINE PHOSPHATASE 107 U/L (45-117); BUN 24 mg/dl (7-24); CHLORIDE 111 mmol/L (98-107); CREATININE 0.86 mg/dL (0.55-1.02); POTASSIUM 4.3 mmol/L (3.5-5.1); SGOT/AST 8 IU/L (3-35); SGPT/ALT 14 U/L (12-78); SODIUM 140 mmol/L (136-145); TOTAL PROTEIN 6.5 gm/dL (6.4-8.2)
[2019-05-21 08:00] VITALS: BP 118/55
[2019-05-21] MEDS ORDERED: CYCLOBENZAPRINE10 MG PO (09:53)
[2019-05-21] MEDS ORDERED: LEVOFLOXACIN500 MG PO (09:53)
[2019-05-21] MEDS ORDERED: PREDNISONE10 MG PO (09:53)
--- NOTE | 2019-05-21 11:30 | NUR ---
Discharge instructions reviewed with patient/family. Patient receptive and verbalizes understanding. Follow-up care arranged. Written instructions given to patient/family. [place] DISCONTINUED. PATIENT AMBULATORY OFF FLOOR & PICKED UP BY MOTHER. TOÑITO TEM[place]
== END 2019-05-21 11:30 | disposition home or self-care (01) | DRG 139 ==
LOC: ED 07:54 → EDHOLD 09:27 → 5E 09:52
PROVIDERS: Family Medicine; Registered Nurse; ADMIT Emergency Medicine
DX: J18.9 Pneumonia, unspecified organism (principal); N17.0 Acute kidney failure with tubular necrosis; E87.1 Hypo-osmolality and hyponatremia; M94.0 Chondrocostal junction syndrome [Tietze]; I50.32 Chronic diastolic (congestive) heart failure; M79.7 Fibromyalgia; G62.9 Polyneuropathy, unspecified; G89.29 Other chronic pain; E87.6 Hypokalemia; G43.909 Migraine, unspecified, not intractable, without status migrainosus; Z87.891 Personal history of nicotine dependence; Z90.49 Acquired absence of other specified parts of digestive tract; Z90.710 Acquired absence of both cervix and uterus; Z90.721 Acquired absence of ovaries, unilateral; Z80.8 Family history of malignant neoplasm of other organs or systems; Z85.41 Personal history of malignant neoplasm of cervix uteri; Z71.6 Tobacco abuse counseling

== ENCOUNTER 2019-08-20 12:11 | Emergency (ER) | payer OTHER ==
[~2019-08-20] VITALS: Ht 170.1 cm; Wt 90.7 kg
[~2019-08-20 12:11] MED LIST changes: +CYCLOBENZAPRINE10 MG PO; +LEVOFLOXACIN500 MG PO
[2019-08-20 12:27] VITALS: BP 130/87
[2019-08-20 13:02] LABS: BASO % 0.3 % (0.0-1.0); EOS # 0.1 10*3/uL (0.0-0.4); EOS % 1.3 % (1.0-4.0); HEMATOCRIT 39.8 % (37.0-47.0); HEMOGLOBIN 13.3 g/dl (12.0-16.0); LYMPH # 1.8 10*3/uL (1.3-4.4); LYMPH % 26.1 % (27.0-41.0); MEAN CELL VOLUME 88.4 fl (81.0-99.0); MEAN CORPUSCULAR HGB 29.6 pg (27.0-31.0); MEAN CORPUSCULAR HGB CONC 33.4 g/dl (33.0-37.0); MEAN PLATELET VOLUME 11.4 fl (9.6-12.3); MONO # 0.6 10*3/uL (0.1-1.0); MONO % 8.8 % (3.0-9.0); NEUT # 4.3 10*3/uL (2.3-7.9); NEUT % 63.4 % (47.0-73.0); PLATELET COUNT AUTOMATED 187 10*3/uL (130-400); RED CELL DISTRI WIDTH 12.6 % (0-14.5); WHITE BLOOD COUNT 6.7 10*3/uL (4.8-10.8)
[2019-08-20 13:12] LABS: ACT PARTIAL THROMBO TIME 35.6 SECONDS (20.0-32.1); INTERNATIONAL NORM RATIO 0.9 (2.0-3.5)
[2019-08-20 13:18] LABS: ALBUMIN 2.6 gm/dl (3.1-4.5); ALKALINE PHOSPHATASE 194 U/L (45-117); BUN 14 mg/dl (7-24); CHLORIDE 107 mmol/L (98-107); CREATININE 0.76 mg/dL (0.55-1.02); LIPASE 95 U/L (73-393); POTASSIUM 4.3 mmol/L (3.5-5.1); SGOT/AST 34 IU/L (3-35); SGPT/ALT 59 U/L (12-78); SODIUM 137 mmol/L (136-145); TOTAL PROTEIN 7.5 gm/dL (6.4-8.2)
[2019-08-20 13:19] LABS: TROPONIN I < 0.015 ng/ml (<0.045)
[2019-08-20 14:22] LABS: BILIRUBIN NEGATIVE (NEGATIVE); BLOOD 3+ (NEGATIVE); CLARITY SL CLOUDY (CLEAR); COLOR YELLOW (YELLOW); GLUCOSE NEGATIVE (NEGATIVE); KETONE NEGATIVE (NEGATIVE); LEUKO ESTERASE 1+ (NEGATIVE); NITRITE NEGATIVE (NEGATIVE); SPECIFIC GRAVITY 1.015 (1.005-1.030); UROBILINOGEN 0.2 E.U./dl (0.2-1.0)
[2019-08-20 14:34] LABS: BACTERIA 3+; EPITHELIAL CELLS 15-20; WBC 31-40 wbc/hpf (0-5)
[2019-08-20 14:35] LABS: MUCOUS 1+
[2019-08-20] MEDS ORDERED: CEPHALEXIN500 M1 PO (17:18)
== END 2019-08-20 17:33 | disposition home or self-care (01) ==
LOC: ED 12:11
PROVIDERS: Nurse Practitioner Family
DX: N39.0 Urinary tract infection, site not specified (principal); J20.8 Acute bronchitis due to other specified organisms; M79.7 Fibromyalgia; I50.30 Unspecified diastolic (congestive) heart failure; I11.0 Hypertensive heart disease with heart failure; F17.200 Nicotine dependence, unspecified, uncomplicated; Z86.73 Personal history of transient ischemic attack (TIA), and cerebral infarction without residual deficits; Z90.710 Acquired absence of both cervix and uterus; Z79.2 Long term (current) use of antibiotics; Z79.899 Other long term (current) drug therapy; Z90.49 Acquired absence of other specified parts of digestive tract

== ENCOUNTER 2020-04-30 04:26 | Emergency (ER) | payer OTHER ==
[~2020-04-30] VITALS: Ht 170.1 cm; Wt 95.5 kg
[~2020-04-30 04:26] MED LIST changes: +CEPHALEXIN500 M1 PO
[2020-04-30 04:49] LABS: BASO % 0.3 % (0.0-1.0); EOS # 0.1 10*3/uL (0.0-0.4); EOS % 1.1 % (1.0-4.0); HEMATOCRIT 46.8 % (37.0-47.0); LYMPH % 37.5 % (27.0-41.0); MEAN CELL VOLUME 87.5 fl (81.0-99.0); MEAN CORPUSCULAR HGB 29.9 pg (27.0-31.0); MEAN CORPUSCULAR HGB CONC 34.2 g/dl (33.0-37.0); MEAN PLATELET VOLUME 10.7 fl (9.6-12.3); MONO # 0.5 10*3/uL (0.1-1.0); MONO % 5.7 % (3.0-9.0); NEUT # 4.3 10*3/uL (2.3-7.9); NEUT % 55.1 % (47.0-73.0); PLATELET COUNT AUTOMATED 211 10*3/uL (130-400); RED BLOOD COUNT 5.35 10*6/uL (4.10-5.10); RED CELL DISTRI WIDTH 12.7 % (0-14.5); WHITE BLOOD COUNT 7.9 10*3/uL (4.8-10.8)
[2020-04-30 05:00] LABS: ACT PARTIAL THROMBO TIME 40.3 SECONDS (20.0-32.1)
[2020-04-30 05:07] LABS: ALBUMIN 3.8 gm/dl (3.1-4.5); ALKALINE PHOSPHATASE 115 U/L (45-117); BUN 18 mg/dl (7-24); CHLORIDE 107 mmol/L (98-107); CREATININE 0.94 mg/dL (0.55-1.02); POTASSIUM 4.4 mmol/L (3.5-5.1); SGOT/AST 22 IU/L (3-35); SGPT/ALT 21 U/L (12-78); SODIUM 135 mmol/L (136-145); TOTAL PROTEIN 8.2 gm/dL (6.4-8.2); TROPONIN I < 0.015 ng/ml (<0.045)
[2020-04-30 09:35] VITALS: BP 118/63
== END 2020-04-30 09:36 | disposition home or self-care (01) ==
LOC: ED 04:26
PROVIDERS: Emergency Medicine
DX: R07.9 Chest pain, unspecified (principal); M54.2 Cervicalgia; I10 Essential (primary) hypertension; M79.7 Fibromyalgia; F17.200 Nicotine dependence, unspecified, uncomplicated

== ENCOUNTER → 2020-06-28 | Outpatient (CLI) | payer OTHER | END | disposition home or self-care (01) | LOC: COVID19 01:05 | PROVIDERS: ATTEND Family Medicine | DX: Z20.828 Contact with and (suspected) exposure to other viral communicable diseases (principal) ==

== ENCOUNTER → 2021-08-13 | Outpatient (CLI) | payer OTHER | END | disposition home or self-care (01) | LOC: COVID19 15:54 | PROVIDERS: ATTEND Internal Medicine | DX: Z11.52 Encounter for screening for COVID-19 (principal) ==

== ENCOUNTER → 2021-10-25 | Outpatient (CLI) | payer OTHER ==
[2021-10-25 14:48] LABS: HEMATOCRIT 45.7 % (37.0-47.0); MEAN CELL VOLUME 90.7 fl (81.0-99.0); MEAN CORPUSCULAR HGB 31.3 pg (27.0-31.0); MEAN CORPUSCULAR HGB CONC 34.6 g/dl (33.0-37.0); MEAN PLATELET VOLUME 10.8 fl (9.6-12.3); RED BLOOD COUNT 5.04 10*6/uL (4.10-5.10); RED CELL DISTRI WIDTH 12.3 % (0-14.5); WHITE BLOOD COUNT 8.1 10*3/uL (4.8-10.8)
[2021-10-25 15:20] LABS: BUN 27 mg/dl (7-24); CHLORIDE 114 mmol/L (98-107); POTASSIUM 4.5 mmol/L (3.5-5.1); SODIUM 140 mmol/L (136-145)
[2021-10-25 15:32] LABS: ALKALINE PHOSPHATASE 123 U/L (45-117); CHOLESTEROL 219 mg/dL (<200); CREATININE 0.98 mg/dL (0.55-1.02); LDL CHOLESTEROL 136 mg/dL (9-159); SGOT/AST 17 IU/L (3-35); SGPT/ALT 24 U/L (12-78); TOTAL PROTEIN 7.3 gm/dL (6.4-8.2); TRIGLYCERIDES 238 mg/dl (<150)
== END | disposition home or self-care (01) ==
LOC: LAB 14:20
PROVIDERS: ATTEND Family Medicine
DX: E55.9 Vitamin D deficiency, unspecified (principal); R53.83 Other fatigue

== ENCOUNTER → 2022-01-09 | Outpatient (CLI) | payer OTHER | END | disposition home or self-care (01) | LOC: RAD 09:46 | PROVIDERS: ATTEND Family Medicine | DX: M25.512 Pain in left shoulder (principal) ==

== ENCOUNTER 2022-07-31 16:50 | Emergency (ER) | payer OTHER ==
[~2022-07-31] VITALS: Wt 90.7 kg
[2022-07-31 16:58] VITALS: BP 115/68
[2022-07-31 18:11] LABS: BASO % 0.3 % (0.0-1.0); HEMATOCRIT 41.6 % (37.0-47.0); LYMPH # 1.1 10*3/uL (1.3-4.4); LYMPH % 10.3 % (27.0-41.0); MEAN CELL VOLUME 88.5 fl (81.0-99.0); MEAN CORPUSCULAR HGB 31.3 pg (27.0-31.0); MEAN CORPUSCULAR HGB CONC 35.3 g/dl (33.0-37.0); MEAN PLATELET VOLUME 10.6 fl (9.6-12.3); MONO # 1.2 10*3/uL (0.1-1.0); MONO % 10.8 % (3.0-9.0); NEUT # 8.5 10*3/uL (2.3-7.9); NEUT % 78.3 % (47.0-73.0); PLATELET COUNT AUTOMATED 153 10*3/uL (130-400); RED CELL DISTRI WIDTH 12.1 % (0-14.5); WHITE BLOOD COUNT 10.8 10*3/uL (4.8-10.8)
[2022-07-31 18:23] LABS: ACT PARTIAL THROMBO TIME 40.4 SECONDS (20.0-32.1)
[2022-07-31 18:27] LABS: ALKALINE PHOSPHATASE 109 U/L (46-116); BUN 11 mg/dl (9-23); CHLORIDE 97 mmol/L (98-107); CREATININE 0.99 mg/dL (0.55-1.02); LIPASE 23 U/L (12-53); POTASSIUM 3.6 mmol/L (3.4-5.1); SGPT/ALT 12 U/L (10-49); SODIUM 130 mmol/L (136-145); TOTAL PROTEIN 7.5 gm/dL (6.0-8.0)
[2022-07-31 18:50] LABS: BILIRUBIN Negative (Negative); BLOOD 3+ (Negative); CLARITY Turbid (Clear); COLOR Yellow (Yellow); GLUCOSE Negative (Negative); KETONE 1+ (Negative); LEUKO ESTERASE 3+ (Negative); NITRITE Negative (Negative); PH 6.5 (4.5-8.0)
[2022-07-31 19:24] LABS: WBC TNTC wbc/hpf (0-5)
[2022-07-31 19:25] LABS: BACTERIA 2+
[2022-07-31] MEDS ORDERED: GABAPENTIN600 MG PO (19:30)
[2022-07-31] MEDS ORDERED: ESCITALOPRAM OX20 MG PO (19:31)
[2022-07-31] MEDS ORDERED: IBU800 M1 PO (19:31)
[2022-07-31] MEDS ORDERED: CIPRO500 MG PO (22:54)
== END 2022-07-31 23:04 | disposition home or self-care (01) ==
LOC: ED 16:50
PROVIDERS: Family Medicine
DX: N39.0 Urinary tract infection, site not specified (principal); E87.8 Other disorders of electrolyte and fluid balance, not elsewhere classified; G43.909 Migraine, unspecified, not intractable, without status migrainosus; Z90.710 Acquired absence of both cervix and uterus; Z90.49 Acquired absence of other specified parts of digestive tract; Z87.891 Personal history of nicotine dependence; Z71.6 Tobacco abuse counseling; F10.90 Alcohol use, unspecified, uncomplicated; R11.2 Nausea with vomiting, unspecified; R79.82 Elevated C-reactive protein (CRP); Z20.822 Contact with and (suspected) exposure to COVID-19

== ENCOUNTER 2023-03-12 16:17 | Emergency (ER) | payer OTHER ==
[~2023-03-12 16:17] MED LIST changes: +CIPRO500 MG PO; +ESCITALOPRAM OX20 MG PO; +GABAPENTIN600 MG PO
[2023-03-12 16:26] VITALS: BP 136/78
== END 2023-03-12 17:10 | disposition home or self-care (01) ==
LOC: ED 16:17
DX: S61.210A Laceration without foreign body of right index finger without damage to nail, initial encounter (principal); F17.200 Nicotine dependence, unspecified, uncomplicated; Z79.2 Long term (current) use of antibiotics; Z79.899 Other long term (current) drug therapy; Z90.711 Acquired absence of uterus with remaining cervical stump; Z90.49 Acquired absence of other specified parts of digestive tract; W25.XXXA Contact with sharp glass, initial encounter; Y93.89 Activity, other specified; Y92.89 Other specified places as the place of occurrence of the external cause; Y99.8 Other external cause status

== ENCOUNTER 2023-09-26 08:28 | Emergency (ER) | payer OTHER ==
[~2023-09-26] VITALS: Ht 170.1 cm; Wt 90.7 kg
[2023-09-26 08:36] VITALS: BP 143/91
[2023-09-26] MEDS ORDERED: Cyclobenzaprine Hydrochlorid 10 MG TAB PO ONE (10:25)
[2023-09-26] MEDS ORDERED: CYCLOBENZAPRINE5 M3 PO (11:14)
== END 2023-09-26 11:15 | disposition home or self-care (01) ==
LOC: ED 08:28
DX: M47.812 Spondylosis without myelopathy or radiculopathy, cervical region (principal); R51.9 Headache, unspecified; M79.7 Fibromyalgia; M25.512 Pain in left shoulder; F17.200 Nicotine dependence, unspecified, uncomplicated; Z79.2 Long term (current) use of antibiotics; Z79.899 Other long term (current) drug therapy; Z90.711 Acquired absence of uterus with remaining cervical stump; Z90.49 Acquired absence of other specified parts of digestive tract

== ENCOUNTER → 2023-10-21 | Outpatient (CLI) | payer OTHER ==
[~2023-10-21] MED LIST changes: +CYCLOBENZAPRINE5 M3 PO
[2023-10-21 15:46] LABS: MEAN CELL VOLUME 94.4 fl (81.0-99.0); MEAN CORPUSCULAR HGB 31.6 pg (27.0-31.0); MEAN CORPUSCULAR HGB CONC 33.5 g/dl (33.0-37.0); MEAN PLATELET VOLUME 10.4 fl (9.6-12.3); RED BLOOD COUNT 5.19 10*6/uL (4.10-5.10); RED CELL DISTRI WIDTH 12.6 % (0-14.5); WHITE BLOOD COUNT 7.1 10*3/uL (4.8-10.8)
[2023-10-21 16:27] LABS: ALKALINE PHOSPHATASE 120 U/L (46-116); BUN 12 mg/dl (9-23); CHLORIDE 110 mmol/L (98-107); CHOLESTEROL 242 mg/dL (<200); FREE T4 1.11 ng/dl (0.89-1.76); LDL CHOLESTEROL 148 mg/dL (9-159); POTASSIUM 4.2 mmol/L (3.4-5.1); SGPT/ALT 14 U/L (5-49); TOTAL PROTEIN 7.4 gm/dL (6.0-8.0); TRIGLYCERIDES 225 mg/dl (<150)
[2023-10-21 16:28] LABS: VITAMIN D, 25-HYDROXY 10.3 ng/mL (30-100)
== END | disposition home or self-care (01) ==
LOC: LAB 01:30
PROVIDERS: ATTEND Family Medicine
DX: Z00.00 Encounter for general adult medical examination without abnormal findings (principal); R53.83 Other fatigue; M54.2 Cervicalgia; R50.9 Fever, unspecified; J43.9 Emphysema, unspecified; M48.02 Spinal stenosis, cervical region; M47.22 Other spondylosis with radiculopathy, cervical region

== ENCOUNTER 2024-01-29 12:00 | Emergency (ER) | payer OTHER ==
[~2024-01-29] VITALS: Ht 170.1 cm; Wt 90.7 kg
[2024-01-29 12:02] VITALS: BP 168/101
[2024-01-29 12:46] LABS: BASO % 0.2 % (0.0-1.0); EOS % 0.2 % (1.0-4.0); HEMATOCRIT 44.8 % (37.0-47.0); LYMPH # 2.4 10*3/uL (1.3-4.4); LYMPH % 37.8 % (27.0-41.0); MEAN CELL VOLUME 90.5 fl (81.0-99.0); MEAN CORPUSCULAR HGB 31.5 pg (27.0-31.0); MEAN CORPUSCULAR HGB CONC 34.8 g/dl (33.0-37.0); MEAN PLATELET VOLUME 11.2 fl (9.6-12.3); MONO # 0.4 10*3/uL (0.1-1.0); MONO % 6.4 % (3.0-9.0); NEUT # 3.5 10*3/uL (2.3-7.9); NEUT % 55.2 % (47.0-73.0); PLATELET COUNT AUTOMATED 173 10*3/uL (130-400); RED BLOOD COUNT 4.95 10*6/uL (4.10-5.10); WHITE BLOOD COUNT 6.3 10*3/uL (4.8-10.8)
[2024-01-29 13:05] LABS: BUN 16 mg/dl (9-23); CHLORIDE 112 mmol/L (98-107); POTASSIUM 3.7 mmol/L (3.4-5.1)
[2024-01-29] MEDS ORDERED: Ondansetron Hydrochloride 4 MG TAB SL ONE (13:15)
[2024-01-29] MEDS ORDERED: ACETAMINOPHEN 325 MG TAB PO ONE (13:15)
[2024-01-29] MEDS ORDERED: Ketorolac Tromethamine 60 MG/2 ML VIAL IM ONE (13:15)
== END 2024-01-29 13:46 ==
LOC: ED 12:00
PROVIDERS: Nurse Practitioner Family
DX: G43.909 Migraine, unspecified, not intractable, without status migrainosus (principal); R11.0 Nausea; R07.89 Other chest pain; R06.02 Shortness of breath; I50.9 Heart failure, unspecified; M19.90 Unspecified osteoarthritis, unspecified site; G62.9 Polyneuropathy, unspecified; F17.200 Nicotine dependence, unspecified, uncomplicated; Z79.899 Other long term (current) drug therapy; M79.7 Fibromyalgia; E44.0 Moderate protein-calorie malnutrition; Z90.49 Acquired absence of other specified parts of digestive tract; Z90.711 Acquired absence of uterus with remaining cervical stump

== ENCOUNTER → 2024-11-02 | Outpatient (CLI) | payer OTHER ==
[2024-11-02 12:02] LABS: HEMATOCRIT 50.1 % (37.0-47.0); MEAN CELL VOLUME 90.6 fl (81.0-99.0); MEAN CORPUSCULAR HGB 30.6 pg (27.0-31.0); MEAN CORPUSCULAR HGB CONC 33.7 g/dl (33.0-37.0); MEAN PLATELET VOLUME 10.2 fl (9.6-12.3); RED BLOOD COUNT 5.53 10*6/uL (4.10-5.10); RED CELL DISTRI WIDTH 12.2 % (0-14.5); WHITE BLOOD COUNT 6.1 10*3/uL (4.8-10.8)
[2024-11-02 12:44] LABS: VITAMIN D, 25-HYDROXY 17.3 ng/mL (30-100)
[2024-11-02 12:46] LABS: ALKALINE PHOSPHATASE 100 U/L (46-116); BUN 13 mg/dl (9-23); CHLORIDE 106 mmol/L (98-107); CHOLESTEROL 250 mg/dL (<200); FREE T4 1.28 ng/dl (0.89-1.76); LDL CHOLESTEROL 160 mg/dL (9-159); POTASSIUM 4.2 mmol/L (3.4-5.1); SGPT/ALT 11 U/L (5-49); TOTAL PROTEIN 7.6 gm/dL (6.0-8.0); TRIGLYCERIDES 186 mg/dl (<150)
== END | disposition home or self-care (01) ==
LOC: LAB 02:46
PROVIDERS: ATTEND Family Medicine
DX: J43.9 Emphysema, unspecified (principal); R09.89 Other specified symptoms and signs involving the circulatory and respiratory systems; R06.02 Shortness of breath; E78.00 Pure hypercholesterolemia, unspecified; R53.83 Other fatigue; Z00.00 Encounter for general adult medical examination without abnormal findings; G62.9 Polyneuropathy, unspecified; F17.200 Nicotine dependence, unspecified, uncomplicated